=== PATIENT | female | born 1980 | race African-American/Black ===

== ENCOUNTER 2017-05-09 10:44 | Emergency (ER) | payer OTHER ==
[~2017-05-09] VITALS: Ht 157.5 cm; Wt 77.3 kg
[2017-05-09 10:50] VITALS: BP 103/64
[2017-05-09] MEDS ORDERED: IBUP-1022 PO (11:17)
[2017-05-09] MEDS ORDERED: MUCI600T37 PO (11:17)
[2017-05-09] MEDS ORDERED: SUDA30TA PO (11:17)
[2017-05-09] MEDS ORDERED: FLON1SPR (11:17)
[2017-05-09] MEDS ORDERED: ZYRT10TA2 PO (11:17)
[2017-07-16] MEDS ORDERED: PERC5TAB12 PO ×2 (01:02→01:56)
[2017-07-16] MEDS ORDERED: FLAG500T PO (01:53)
[2017-07-16] MEDS ORDERED: CIPR-249 PO (01:53)
== END 2017-05-09 11:25 | disposition home or self-care (01) ==
LOC: M ED 10:44
DX: J02.9 Acute pharyngitis, unspecified (principal); Z88.8 Allergy status to other drugs, medicaments and biological substances; Z91.09 Other allergy status, other than to drugs and biological substances

== ENCOUNTER 2017-05-26 09:23 | Emergency (ER) | payer OTHER ==
[~2017-05-26] VITALS: Ht 158.8 cm; Wt 77.3 kg
[~2017-05-26 09:23] MED LIST: FLON1SPR; IBUP-1022 PO; MUCI600T37 PO; SUDA30TA PO; ZYRT10TA2 PO
[2017-05-26] MEDS ORDERED: NAPR500T PO (10:17)
[2017-05-26 10:28] VITALS: BP 122/68
[2017-07-16] MEDS ORDERED: PERC5TAB12 PO ×2 (01:02→01:56)
[2017-07-16] MEDS ORDERED: CIPR-249 PO (01:53)
[2017-07-16] MEDS ORDERED: FLAG500T PO (01:53)
== END 2017-05-26 10:29 | disposition home or self-care (01) ==
LOC: M ED 09:23
DX: S86.812A Strain of other muscle(s) and tendon(s) at lower leg level, left leg, initial encounter (principal); X50.3XXA Overexertion from repetitive movements, initial encounter; Y92.89 Other specified places as the place of occurrence of the external cause; Y93.89 Activity, other specified; Y99.9 Unspecified external cause status

== ENCOUNTER 2017-09-03 11:38 | Emergency (ER) | payer OTHER ==
[~2017-09-03] VITALS: Ht 160 cm; Wt 74.1 kg
[~2017-09-03 11:38] MED LIST changes: +CIPR-249 PO; +FLAG500T PO; +NAPR500T PO; +PERC5TAB12 PO
[2017-09-03 11:39] VITALS: BP 116/61
== END 2017-09-03 13:34 | disposition home or self-care (01) ==
LOC: M ED 11:38
DX: J06.9 Acute upper respiratory infection, unspecified (principal); B34.9 Viral infection, unspecified

== ENCOUNTER 2019-11-12 14:58 | Emergency (ER) | payer OTHER ==
[~2019-11-12] VITALS: Ht 157.5 cm; Wt 84.1 kg
[~2019-11-12 14:58] MED LIST changes: +NAPR-837 PO; -NAPR500T PO; +ZYRT10CA5 PO; -ZYRT10TA2 PO
--- NOTE | 2019-11-12 15:47 | REP ---
Right index finger series: Four views. History: Trauma. Index finger caught in biliary machine. Findings: There is a chip fracture of the distal tuft of the index finger nondisplaced. No opaque foreign body is noted. There is associated swelling. There is soft tissue irregularity in the distal end of the fingernail. Impression: Chip fracture of the distal tuft of the index finger with associated soft-tissue swelling and irregularity consistent with an open injury. . Electronically Signed by Jonny Bravo MD 11/12/2019 03:38 P
[2019-11-12] MEDS ORDERED: KEFL500C17 PO (17:59)
[2019-11-12] MEDS ORDERED: LIDOCAINE 1% SDV 5 ML VIAL DILUENT ONE (18:00)
[2019-11-12] MEDS ORDERED: cefTRIAXone SOD 1 GM VIAL (J0696) IM ONE (18:00)
[2019-11-12 18:31] VITALS: BP 120/70
== END 2019-11-12 18:33 | disposition home or self-care (01) ==
LOC: M ED 14:58
DX: S62.660B Nondisplaced fracture of distal phalanx of right index finger, initial encounter for open fracture (principal); S61.310A Laceration without foreign body of right index finger with damage to nail, initial encounter; W31.89XA Contact with other specified machinery, initial encounter; Y92.89 Other specified places as the place of occurrence of the external cause; Y93.89 Activity, other specified; Y99.0 Civilian activity done for income or pay; Z88.8 Allergy status to other drugs, medicaments and biological substances
CPT/HCPCS: 73140; 96372; 99283; J0696